=== PATIENT | male | born 1980 | race Caucasian/White ===

== ENCOUNTER 2018-09-15 16:30 | Emergency (ER) | payer OTHER ==
[~2018-09-15] VITALS: Ht 165.1 cm; Wt 61.9 kg
[2018-09-15 16:40] VITALS: BP 114/65; PULSE 71; RESP 18; Ht 165.1 cm; Wt 61.9 kg
[2018-09-15] MEDS ORDERED: LIDOCAINE 2% (MDV) 20 ML INJ INJ STA (18:02)
[2018-09-15] MEDS ORDERED: IBUP-1542 PO (18:05)
--- NOTE | 2018-09-15 18:12 | ERD ---
ER Documentation Chief Complaint Chief Complaint lt ring finger lac with knife while working in kitchen x 2 days ago HPI 38-year-old male with no reported past medical history who presents status post laceration to left ring finger. Patient states he was in his kitchen washing dishes 2 days ago when he sustained injury. He otherwise denies any other injuries, affected limb weakness or numbness. He otherwise is without complaint. ROS All systems reviewed and are negative except as per history of present illness. Medications Home Meds Active Scripts Ibuprofen* (Motrin*) 600 Mg Tab, 600 MG PO Q6, #30 TAB Prov:JOSE OZUNA PA-C 09/15/18 Allergies Allergies: Coded Allergies: No Known Allergy (Unverified , 09/15/18) PMhx/Soc Medical and Surgical Hx: pt denies Medical Hx History of Surgery: Yes (Traumatic brain [id number]) Anesthesia Reaction: No Hx Alcohol Use: No Hx Substance Use: No Hx Tobacco Use: Yes Smoking Status: Current every day smoker FmHx Family History: No diabetes, No coronary disease, No other Physical Exam Vitals Vital Signs Date Temp Pulse Resp B/P (MAP) Pulse Ox O2 O2 Flow FiO2 Time Delivery Rate 09/15/18 98.1 71 18 114/65 98 16:40 (81) Physical Exam I have reviewed the triage vital signs. Const: Well nourished, well developed, appears stated age Eyes: PERRL, no conjunctival injection HENT: NCAT, Neck supple without meningismus CV: RRR, Warm, well-perfused extremities RESP: CTAB, Unlabored respiratory effort GI: soft, non-tender, non-distended, no masses MSK: Left ring finger with 1 cm laceration across digit, moving all fingers, SI LT throughout Skin: Warm, dry. No rashes Neuro: grossly non focal Psych: Appropriate mood and affect. Results 24 hrs Current Medications Medications Dose Sig/Antoinette Start Time Status Last (Trade) Ordered Route PRN Stop Time Admin Dose Reason Admin Lidocaine 20 ml ONCE STAT 09/15/18 DC (Xylocaine INJ 18:02 2% (Mdv) 20 09/15/18 18:03 ml) Procedures/MDM 38-year-old male presents with laceration to left ring finger. Laceration repaired in ED without complication. Patient neurovascularly intact post procedure. Laceration Repair by me: Anesthesia: 1% lidocaine locally Location: Left ring finger Tendon/Joint/Nerves: No injury Foreign body: None detected after copious irrigation and exploration Technique: Simple Interrupted Sutures Complexity: No subcutaneous sutures/mucosal repair/edge excision Post Closure Length: 1 cm Patient's bleeding was easily controlled in the department and there is no indication of anemia. No evidence of compartment syndrome, neurologic injury, vascular injury, open joint, tendon laceration, or foreign body. Patient is appropriate for outpatient follow up. 48 hour wound check. Scar minimization instructions given. Departure Diagnosis: Primary Impression: Laceration Condition: Stable Patient Instructions: Laceration, Hand Referrals: [facility] YOU HAVE RECEIVED A MEDICAL SCREENING EXAM AND THE RESULTS INDICATE THAT YOU DO NOT HAVE A CONDITION THAT REQUIRES URGENT TREATMENT IN THE EMERGENCY DEPARTMENT. FURTHER EVALUATION AND TREATMENT OF YOUR CONDITION CAN WAIT UNTIL YOU ARE SEEN IN YOUR DOCTORS OFFICE WITHIN THE NEXT 1-2 DAYS. IT IS YOUR RESPONSIBILITY TO MAKE AN APPOINTMENT FOR FOLOW-UP CARE. IF YOU HAVE A PRIMARY DOCTOR --you should call your primary doctor and schedule an appointment IF YOU DO NOT HAVE A PRIMARY DOCTOR YOU CAN CALL OUR PHYSICIAN REFERRAL HOTLINE AT IF YOU CAN NOT AFFORD TO SEE A PHYSICIAN YOU CAN CHOSE FROM THE FOLLOWING [facility] [address] [facility]. [facility] [address] [facility]. [facility] [address] [facility] [facility] [address] [facility] [facility] [address] [facility]. [facility]. [address] Additional Instructions: Call your primary care doctor TOMORROW for an appointment during the next 2-3 days.See the doctor sooner or return here if your condition worsens before your appointment time. JOSE OZUNA PA-C Sep 15, 2018 18:12
[2018-09-15] MEDS ORDERED: KETOROLAC 30 MG INJ IM STA (19:10)
== END 2018-09-15 19:30 | disposition home or self-care (01) ==
LOC: FTE 16:30
DX: S61.215A Laceration without foreign body of left ring finger without damage to nail, initial encounter (principal); F17.210 Nicotine dependence, cigarettes, uncomplicated; W26.0XXA Contact with knife, initial encounter; Y92.000 Kitchen of unspecified non-institutional (private) residence as the place of occurrence of the external cause
CPT/HCPCS: 12001; 96372; J1885; Z7502; Z7610

== ENCOUNTER → 2018-09-19 | Emergency (ER) | payer OTHER ==
[~2018-09-19] VITALS: Wt 78.0 kg
[~2018-09-19] MED LIST: IBUP-1542 PO
[2018-09-19 16:27] VITALS: BP 112/65; PULSE 65; RESP 18
--- NOTE | 2018-09-19 16:38 | ERD ---
ER Documentation Chief Complaint Chief Complaint LEFT RING FINGER SUTURE REMOVAL HPI 38-year-old male presents for a wound check on his left fourth digit where he sustained a laceration approximately 4 days ago while washing dishes. No restricted range of motion or weakness or deficits of bleeding or discharge. ROS All systems reviewed and are negative except as per history of present illness. Medications Home Meds Active Scripts Ibuprofen* (Motrin*) 600 Mg Tab, 600 MG PO Q6, #30 TAB Prov:SULMAJOSE BLANCO 09/15/18 Allergies Allergies: Coded Allergies: No Known Allergy (Unverified , 09/15/18) PMhx/Soc History of Surgery: Yes (Traumatic brain [id number]) Anesthesia Reaction: No Hx Alcohol Use: No Hx Substance Use: No Hx Tobacco Use: Yes Smoking Status: Current every day smoker Physical Exam Vitals Vital Signs Date Temp Pulse Resp B/P (MAP) Pulse Ox O2 O2 Flow FiO2 Time Delivery Rate 09/19/18 98.1 65 18 112/65 99 16:27 (81) Physical Exam Const: No acute distress Head: Atraumatic Eyes: Normal Conjunctiva ENT: Normal External Ears, Nose and Mouth. Neck: Full range of motion. No meningismus. Resp: Clear to auscultation bilaterally Cardio: Regular rate and rhythm, no murmurs Abd: Soft, non tender, non distended. Normal bowel sounds Skin: No petechiae or rashes Back: No midline or flank tenderness Ext: No cyanosis, or edema. Healing laceration on the anterior aspect or flexor surface of his left ring finger. No erythema, discharge, redness, deficits or weakness. Neur: Awake and alert Psych: Normal Mood and Affect Procedures/MDM Patient presents with what appears to be a satisfactory healing laceration on hi s left ring finger. There is no current signs of deficits, infection, ischemia, additional complications. I believe it is too early for suture removal. He will be discharged home with an additional recheck in 4 to 5 days, sooner for redness, fevers, new worsening symptoms. Departure Diagnosis: Primary Impression: Suture check Condition: Stable Patient Instructions: Suture Care Additional Instructions: Recheck additional 4 to 5 days for suture removal. Wound not completely healed. JEANE ANTHONY MD Sep 19, 2018 16:38
== END | disposition home or self-care (01) ==
LOC: FTE 16:20
DX: Z48.02 Encounter for removal of sutures (principal)
CPT/HCPCS: 99281